=== PATIENT | female | born 1995 | race Caucasian/White ===

== ENCOUNTER → 2016-11-11 | Outpatient (REF) | payer BC | LOC: M LAB REF 15:03 | PROVIDERS: ATTEND Advanced Practice Midwife | DX: Z12.4 Encounter for screening for malignant neoplasm of cervix (principal) ==

== ENCOUNTER → 2016-12-02 | Outpatient (REF) | payer BC ==
[2016-12-02 12:19] LABS: BASO % 0.1 % (0.0-1.0); EOS % 0.1 % (0.0-3.0); LARGE UNSTAINED CELL # 0.1 K/mm3 (0.0-0.4); LARGE UNSTAINED CELL % 3.1 % (0.0-4.0); LYMPH # 1.2 K/mm3 (1.5-6.5); MEAN CORPUSCULAR HEMOGLOBIN 28.4 pg (27.0-33.0); MEAN CORPUSCULAR HGB CONC 33.2 g/dl (32.0-36.5); MEAN CORPUSCULAR VOLUME 85.6 fl (80.0-96.0); MONO # 0.2 K/mm3 (0.0-0.8); MONO % 6.3 % (0.0-5.0); NEUTROPHILS # 1.9 K/mm3 (1.8-7.7); NEUTROPHILS % 55.5 % (36.0-66.0); PLATELET COUNT, AUTOMATED 249 k/mm3 (150-450); RED CELL DISTRIBUTION WIDTH 12.5 % (11.5-14.5); WHITE BLOOD COUNT 3.4 K/mm3 (4.0-10.0)
[2016-12-02 12:50] LABS: ALBUMIN/GLOBULIN RATIO 1.29 (1.00-1.93); ALKALINE PHOSPHATASE 52 U/L (45-117); ALT/SGPT 27 U/L (12-78); ANION GAP 9 MEQ/L (8-16); AST/SGOT 16 U/L (15-37); BILIRUBIN,TOTAL 0.7 MG/DL (0.2-1.0); BLOOD UREA NITROGEN 7 MG/DL (7-18); CALCIUM LEVEL 8.3 MG/DL (8.5-10.1); CARBON DIOXIDE LEVEL 26 MEQ/L (21-32); CHLORIDE LEVEL 107 MEQ/L (98-107); CREATININE FOR GFR 0.66 MG/DL (0.55-1.02); FREE T4 0.91 NG/DL (0.76-1.46); GLOMERULAR FILTRATION RATE > 60.0 (>60); GLUCOSE, FASTING 83 MG/DL (70-105); POTASSIUM SERUM 3.9 MEQ/L (3.5-5.1); SODIUM LEVEL 142 MEQ/L (136-145); TOTAL PROTEIN 7.1 GM/DL (6.4-8.2)
== END ==
LOC: M LAB REF 10:08
PROVIDERS: ATTEND Family Medicine
DX: A04.7 Enterocolitis due to Clostridium difficile (principal)

== ENCOUNTER → 2017-12-01 | Outpatient (REF) | payer OTHER ==
[2017-12-01 17:18] LABS: HEMATOCRIT 43.5 % (36.0-47.0); HEMOGLOBIN 14.2 g/dl (12.0-16.0); IMMATURE GRANULOCYTE % 0.2 % (0-3.0); LYMPH # 1.4 10^3/uL (1.5-6.5); LYMPH % 25.6 % (24.0-44.0); MEAN CORPUSCULAR HEMOGLOBIN 27.6 pg (27.0-33.0); MEAN CORPUSCULAR HGB CONC 32.6 g/dl (32.0-36.5); MEAN CORPUSCULAR VOLUME 84.5 fl (80.0-96.0); MONO # 0.4 10^3/uL (0.0-0.8); MONO % 7.9 % (0.0-5.0); NEUTROPHILS # 3.6 10^3/uL (1.8-7.7); NEUTROPHILS % 66.3 % (36.0-66.0); PLATELET COUNT, AUTOMATED 293 10^3/uL (150-450); RED BLOOD COUNT 5.15 10^6/uL (4.00-5.40); RED CELL DISTRIBUTION WIDTH 13.3 % (11.5-14.5); WHITE BLOOD COUNT 5.4 10^3/uL (4.0-10.0)
[2017-12-01 17:59] LABS: THYROGLOBULIN ANTIBODY < 15.0 U/ML (<60.0); THYROID PEROXIDASE ANTIBODY < 28.0 U/ML (<60.0); TOTAL 25(OH) VITAMIN D 20.8 NG/ML (30.0-100.0)
[2017-12-01 18:03] LABS: ALBUMIN 4.4 GM/DL (3.2-5.2); ALBUMIN/GLOBULIN RATIO 1.26 (1.00-1.93); ALKALINE PHOSPHATASE 55 U/L (45-117); ALT/SGPT 23 U/L (12-78); AST/SGOT 17 U/L (7-37); BILIRUBIN,DIRECT 0.2 MG/DL (0.0-0.2); BILIRUBIN,TOTAL 0.6 MG/DL (0.2-1.0); RHEUMATOID FACTOR QUANT < 10.0 IU/ML (0-15.0); THYROXINE (T4) 7.6 UG/DL (4.5-12.0); TOTAL PROTEIN 7.9 GM/DL (6.4-8.2)
[2017-12-01 20:43] LABS: ERYTHROCYTE SEDIMENTATION RATE 3 mm/hr (0-20)
[2017-12-04 14:16] LABS: ANTINUCLEAR ANTIBODIES DIRECT Negative (Negative)
[2017-12-05 00:06] LABS: COMPLEMENT TOTAL (CH50) 60 U/mL (42-60)
== END ==
LOC: M LABDRAW1 15:22
DX: L50.1 Idiopathic urticaria (principal); E55.9 Vitamin D deficiency, unspecified; E07.89 Other specified disorders of thyroid; Z91.018 Allergy to other foods

== ENCOUNTER → 2018-02-05 | Outpatient (REF) | payer OTHER | LOC: M LAB REF 09:55 | DX: R19.7 Diarrhea, unspecified (principal) | CPT/HCPCS: 87507 ==

== ENCOUNTER 2018-11-21 14:26 | Emergency (ER) | payer OTHER ==
[~2018-11-21] VITALS: Ht 149.9 cm; Wt 59.0 kg
[2018-11-21] MEDS ORDERED: FLUO20CA19 (14:38)
[2018-11-21] MEDS ORDERED: ALTA1TAB3 (14:38)
[2018-11-21] MEDS ORDERED: HYDR2.5C54 (14:38)
[2018-11-21] MEDS ORDERED: ZYRTTAB8 PO (14:38)
[2018-11-21] MEDS ORDERED: OMEP-218 (14:38)
[2018-11-21] MEDS ORDERED: CLON0.5T8 (14:38)
[2018-11-21] MEDS ORDERED: NS 1,000 ML IV ONE (15:15)
[2018-11-21 15:59] LABS: BASO % 0.1 % (0.0-1.0); HEMATOCRIT 38.6 % (36.0-47.0); HEMOGLOBIN 12.5 g/dl (12.0-15.5); LYMPH # 1.4 10^3/uL (1.5-6.5); LYMPH % 12.8 % (24.0-44.0); MEAN CORPUSCULAR HEMOGLOBIN 28.2 pg (27.0-33.0); MEAN CORPUSCULAR HGB CONC 32.4 g/dl (32.0-36.5); MEAN CORPUSCULAR VOLUME 86.9 fl (80.0-96.0); MONO # 0.6 10^3/uL (0.0-0.8); MONO % 5.7 % (0.0-5.0); NEUTROPHILS # 8.7 10^3/uL (1.8-7.7); PLATELET COUNT, AUTOMATED 292 10^3/uL (150-450); RED BLOOD COUNT 4.44 10^6/uL (4.00-5.40); WHITE BLOOD COUNT 10.8 10^3/uL (4.0-10.0)
[2018-11-21 17:01] LABS: HCG, SERUM QUALITATIVE NEGATIVE (NEGATIVE)
[2018-11-21 17:09] LABS: ALT/SGPT 19 U/L (12-78); BILIRUBIN,TOTAL 0.4 MG/DL (0.2-1.0); BLOOD UREA NITROGEN 7 MG/DL (7-18); CALCIUM LEVEL 8.1 MG/DL (8.5-10.1); CARBON DIOXIDE LEVEL 29 MEQ/L (21-32); CHLORIDE LEVEL 106 MEQ/L (98-107); CREATININE FOR GFR 0.75 MG/DL (0.55-1.30); GLOMERULAR FILTRATION RATE > 60.0 (>60); GLUCOSE, FASTING 95 MG/DL (70-100); POTASSIUM SERUM 3.4 MEQ/L (3.5-5.1); SODIUM LEVEL 140 MEQ/L (136-145)
[2018-11-21 17:30] VITALS: BP 153/82
[2018-11-21] MEDS ORDERED: LAMI25TA PO (17:55)
--- NOTE | 2018-11-21 17:59 | REP ---
Head CT without contrast: History: Trauma Comparison study: No comparison head CT. CT findings: Bone window settings demonstrate an intact bony calvarium. There is no evidence of skull fracture or incidental bony calvarial lesion. The visualized paranasal sinuses appear clear. No intraorbital abnormality is seen. On soft tissue window setting images; the lateral, third, and fourth ventricles are normal in size and position. Michaels-white differentiation pattern is normal above and below the tentorium. There are is no evidence of intracranial hemorrhage. No mass, edema, infarction, or midline shift is seen. No extra-axial fluid collection is appreciated. Impression: Negative noncontrast head CT. Electronically Signed by Pablito Fall MD 11/21/2018 05:50 P
[2018-11-21] MEDS ORDERED: lamoTRIgine 25 MG TAB PO ONE (18:00)
--- NOTE | 2018-11-21 21:19 | ECGEPIP ---
Stationary ECG Study [facility] - ED Test Date: 2018-11-21 Pat Name: DEE RITCHIE Department: Room: - Gender: F Maitre D: : 1995 Requested By: Camila Crawford Order Number: [id number] Reading MD: Ricki Cloud Measurements Intervals [place] Rate: 105 P: 66 PA: 167 QRS: 52 QRSD: 82 T: 29 QT: 348 QTc: 462 Interpretive Statements SINUS TACHYCARDIA POSSIBLE LEFT ATRIAL ENLARGEMENT MINIMAL ST DEPRESSION NO PRIORS FOR COMPARISON Electronically Signed On 11-21-2018 21:19:17 EST by Ricki Cloud
== END 2018-11-21 18:12 | disposition home or self-care (01) ==
LOC: M ED 14:26 → EDBD 14:26 → M ED 18:12
DX: G43.909 Migraine, unspecified, not intractable, without status migrainosus (principal)

== ENCOUNTER → 2018-12-21 | Outpatient (REF) | payer OTHER ==
[~2018-12-21] MED LIST: ALTA1TAB3; CLON0.5T8; FLUO20CA19; HYDR2.5C54; LAMI25TA PO; OMEP-218; ZYRTTAB8 PO
[2018-12-21 13:23] LABS: BASO % 0.1 % (0.0-1.0); HEMATOCRIT 39.4 % (36.0-47.0); HEMOGLOBIN 12.6 g/dl (12.0-15.5); LYMPH # 1.2 10^3/uL (1.5-6.5); LYMPH % 15.1 % (24.0-44.0); MEAN CORPUSCULAR HEMOGLOBIN 27.6 pg (27.0-33.0); MEAN CORPUSCULAR VOLUME 86.4 fl (80.0-96.0); MONO # 0.3 10^3/uL (0.0-0.8); MONO % 4.3 % (0.0-5.0); NEUTROPHILS # 6.2 10^3/uL (1.8-7.7); NEUTROPHILS % 80.4 % (36.0-66.0); PLATELET COUNT, AUTOMATED 330 10^3/uL (150-450); RED BLOOD COUNT 4.56 10^6/uL (4.00-5.40); WHITE BLOOD COUNT 7.7 10^3/uL (4.0-10.0)
[2018-12-21 13:52] LABS: ERYTHROCYTE SEDIMENTATION RATE 10 mm/hr (0-20)
[2018-12-21 14:08] LABS: ALT/SGPT 21 U/L (12-78); BILIRUBIN,TOTAL 0.3 MG/DL (0.2-1.0); BLOOD UREA NITROGEN 10 MG/DL (7-18); CALCIUM LEVEL 8.5 MG/DL (8.5-10.1); CARBON DIOXIDE LEVEL 25 MEQ/L (21-32); CHLORIDE LEVEL 105 MEQ/L (98-107); GLOMERULAR FILTRATION RATE > 60.0 (>60); GLUCOSE, FASTING 84 MG/DL (70-100); POTASSIUM SERUM 4.3 MEQ/L (3.5-5.1); RHEUMATOID FACTOR QUANT < 10.0 IU/ML (<15.0); SODIUM LEVEL 139 MEQ/L (136-145); TOTAL PROTEIN 7.4 GM/DL (6.4-8.2)
[2018-12-24 15:42] LABS: ANTINUCLEAR ANTIBODIES DIRECT Negative (Negative)
== END ==
LOC: M LABDRAW1 12:28
PROVIDERS: ATTEND Psychiatry & Neurology Neurology
DX: R56.9 Unspecified convulsions (principal)

== ENCOUNTER → 2019-05-06 | Outpatient (CLI) | payer OTHER ==
--- NOTE | 2019-05-07 03:08 | REP ---
Clinical: Constipation. Technique: Supine views of the abdomen and pelvis. Findings: Three total views demonstrate nonspecific bowel gas pattern without evidence for obstruction or perforation. No significant fecal stasis or constipation suggested. No organomegaly. No abnormal calcifications. Skeletal structures are intact. Impression: Normal, nonspecific abdominal radiographs. Electronically Signed by Barrie Dominguez MD 05/07/2019 02:59 A
== END ==
LOC: M WUC 16:51
PROVIDERS: ATTEND Family Medicine
DX: K59.00 Constipation, unspecified (principal)

== ENCOUNTER → 2019-08-16 | Outpatient (REF) | payer OTHER ==
[2019-08-16 15:03] LABS: CHLAMYDIA DNA AMPLIFICATION NEGATIVE (NEGATIVE); GC DNA AMPLIFICATION NEGATIVE (NEGATIVE)
== END ==
LOC: M LAB REF 13:07
PROVIDERS: ATTEND Advanced Practice Midwife
DX: Z11.3 Encounter for screening for infections with a predominantly sexual mode of transmission (principal)

== ENCOUNTER → 2019-12-27 | Outpatient (REF) | payer BC ==
[~2019-12-27] MED LIST changes: +CLON0.5T2; -CLON0.5T8; -FLUO20CA19; +FLUO20CA22
[2019-12-27 12:09] LABS: HEMATOCRIT 40.8 % (36.0-47.0); HEMOGLOBIN 12.8 g/dl (12.0-15.5); MEAN CORPUSCULAR HEMOGLOBIN 26.4 pg (27.0-33.0); MEAN CORPUSCULAR HGB CONC 31.4 g/dl (32.0-36.5); MEAN CORPUSCULAR VOLUME 84.1 fl (80.0-96.0); PLATELET COUNT, AUTOMATED 320 10^3/uL (150-450); RED BLOOD COUNT 4.85 10^6/uL (4.00-5.40); WHITE BLOOD COUNT 6.6 10^3/uL (4.0-10.0)
[2019-12-27 12:56] LABS: HEPATITIS B SURFACE ANTIGEN NEGATIVE (NEGATIVE); HEPATITIS C VIRUS ABY INDEX < 0.0 INDEX (<0.8); HIV 1&2 SCREEN CENTAUR NEGATIVE (NEGATIVE); RUBELLA IgG QUALITATIVE IMMUNE (IMMUNE)
[2019-12-28 11:37] LABS: CHLAMYDIA DNA AMPLIFICATION NEGATIVE (NEGATIVE); GC DNA AMPLIFICATION NEGATIVE (NEGATIVE)
== END ==
LOC: M LABDRAW1 09:45
PROVIDERS: ATTEND Advanced Practice Midwife
DX: O99.351 Diseases of the nervous system complicating pregnancy, first trimester (principal)

== ENCOUNTER → 2020-02-21 | Outpatient (CLI) | payer BC ==
--- NOTE | 2020-02-21 10:37 | REP ---
REASON: anatomy. PRIORS: None. Multiple ultrasonographic images of the gravid uterus show a single living intrauterine gestation in the cephalic presentation. Doppler interrogation of the heart shows a heart rate of 140 beats per minute. The placenta is anterior and not low lying. The cervix measures 3. 5 cm in length and is closed. The subjective amniotic fluid volume is within normal limits. Evaluation of the maternal adnexal spaces showed no abnormalities. BPD 4.0 cm = 18 weeks 2 days HC 15.0 cm = 18 weeks 0 days AC 12.0 cm = 17 weeks 6 days FL 2.8 cm = 18 weeks 4 days The estimated weight is 229 grams which is at the 43rd percentile for an 45-qnvs-0-day gestational age. anatomical structures visualized as unremarkable are as follows: Thalami, cavum septum pellucidum, cerebellum, cisterna magna, spine, cord insertion, three vessel umbilical cord, and upper and lower extremities. Structures suboptimally visualized are as follows: Kidneys, urinary bladder, four-chamber heart, right and left ventricular outflow tracts, and upper lip. IMPRESSION: Single living intrauterine gestation as described above with an estimated gestational age of 18 weeks 1 day via composite criteria and an estimated date of delivery of by today's exam. No anomaly was detected, however, I recommend a followup examination at 20-22 weeks gestation to better visualize those structures not well seen today as described above.
== END ==
LOC: M WHC 07:49
PROVIDERS: ATTEND Advanced Practice Midwife
DX: Z34.02 Encounter for supervision of normal first pregnancy, second trimester (principal); Z3A.18 18 weeks gestation of pregnancy

== ENCOUNTER → 2020-03-27 | Outpatient (CLI) | payer BC ==
--- NOTE | 2020-03-30 07:45 | REP ---
Clinical: Anatomical evaluation. Comparison: 02/21/2020 . Findings: Examination demonstrates a single live intrauterine in cephalic presentation. motion is identified by technologist. Placenta is noted anterior and grade I I without evidence for placenta previa or abruption. Amniotic fluid volume is normal. Cervix measures 4.2 cm in length and appears closed. No evidence for nuchal cord. Maternal left adnexa demonstrates echogenicity which may represent normal bowel gas, but left adnexal mass cannot be excluded and may warrant maternal pelvic ultrasound evaluation. Gestational age by LMP 23 weeks 2 days with REFUGIO 07/22/2020 . Gestational age by current measurements 22 weeks 6 days with REFUGIO 07/25/2020 . FHR equals 142 beats per minute. Estimated weight 598 grams ( 50th percentile). Anatomical assessment demonstrates normal structures including facial features, and four-chamber heart/ventricular outflow tracts. Impression: 1. Single live intrauterine in cephalic presentation demonstrating appropriate interval growth. 2. In conjunction with prior examination anatomical assessment is complete and normal. 3. Cannot exclude echogenic mass in the left maternal adnexa. Pelvic ultrasound sometime after delivery may be warranted for further investigation.
== END ==
LOC: M WHC 08:52
PROVIDERS: ATTEND Advanced Practice Midwife
DX: Z34.02 Encounter for supervision of normal first pregnancy, second trimester (principal); Z36.2 Encounter for other antenatal screening follow-up; Z3A.23 23 weeks gestation of pregnancy

== ENCOUNTER → 2020-05-01 | Outpatient (REF) | payer BC ==
[~2020-05-01] MED LIST changes: +IBUP80TA PO
[2020-05-01 13:57] LABS: HEMOGLOBIN 10.9 g/dl (12.0-15.5); MEAN CORPUSCULAR HEMOGLOBIN 26.9 pg (27.0-33.0); MEAN CORPUSCULAR HGB CONC 31.1 g/dl (32.0-36.5); MEAN CORPUSCULAR VOLUME 86.4 fl (80.0-96.0); PLATELET COUNT, AUTOMATED 265 10^3/uL (150-450); RED BLOOD COUNT 4.05 10^6/uL (4.00-5.40); WHITE BLOOD COUNT 9.5 10^3/uL (4.0-10.0)
== END ==
LOC: M PLALAB 10:39
PROVIDERS: ATTEND Advanced Practice Midwife
DX: O99.352 Diseases of the nervous system complicating pregnancy, second trimester (principal)
CPT/HCPCS: 36415; 82950; 85027; 86850; 86900; 86901; J2790

== ENCOUNTER → 2020-06-26 | Outpatient (REF) | payer BC | LOC: M SFHCWAGY 11:46 | PROVIDERS: ATTEND Advanced Practice Midwife | DX: Z34.03 Encounter for supervision of normal first pregnancy, third trimester (principal); Z3A.00 Weeks of gestation of pregnancy not specified ==

== ENCOUNTER → 2020-06-26 | Outpatient (REF) | payer BC | LOC: M LAB REF 16:17 | PROVIDERS: ATTEND Plastic Surgery Surgery of the Hand | DX: D21.11 Benign neoplasm of connective and other soft tissue of right upper limb, including shoulder (principal) ==

== ENCOUNTER 2020-07-09 11:40 | Inpatient (IN) | payer BC ==
[2020-07-09] VITALS (43 sets, daily range): BP systolic 111–158; BP diastolic 56–93
[~2020-07-09] VITALS: Ht 149.9 cm; Wt 81.8 kg
[~2020-07-09 11:40] MED LIST changes: -IBUP80TA PO
--- NOTE | 2020-07-09 13:18 | HPEPDOC ---
Obstetrical History & Physical General Date of Admission Jul 09, 2020 at 12:58 History of Present Illness Chief Complaint: LOF, term Information Provided By: Patient Age: 25 : 1 Term: 0 Pre-term: 0 Abortions: 0 Livin Care Care: Good Care Dating Final EDC: Jul 20, 2020 Final EDC by: LMP, 1st trimester (US) EGA at Admission: 38 Antepartum Course Diagnos(e)s c/o loss of fluid per vagina at 8:30 am on the day of admission. leaking continued. Mild contractions. no vaginal bleeding. Past Medical History Past Obstetrical History : Past Obstetrical History: Primgravida Past Medical History Medical History Seizure disorder anxiety Surgical History: Denies/None Family History Significant Family History: No pertinent family hx Social History Marital Status: Single * Smoker: non-smoker Alcohol: Denies Drugs: denies Allergies Coded Allergies: clindamycin (Verified Allergy, Intermediate, HIVES, 07/09/20) Medications Scheduled Cetirizine HCl/Pseudoephedrine (Zyrtec-D Tablet) 1 Tab Tab, 1 TAB PO DAILYPRN Miscellaneous Medications Omeprazole (Omeprazole) 20 Mg Cap Physical Examination Physical Examination GENERAL: Alert and oriented times three. BREAST: . ABDOMEN: Gravid and non-tender to touch. FETUS: Is vertex (VTX) by sterile vaginal examination (SVE), fetus is vertex (VTX) by Gomez. HEART RATE: Regular rate and rhythm. LUNGS: Clear to auscultation (CTA). EXTREMITIES: No edema. No clonus. Deep tendon reflexes (DTRs) + . Vital Signs/I&O Vital Signs Date Time Temp Pulse Resp B/P (MAP) Pulse Ox O2 Delivery O2 Flow Rate FiO2 07/09/20 12:19 146/91 (109) 07/09/20 12:17 98.6 100 18 Pertinent Laboratoy Data Blood Type: A- Group B Streptococcus: Negative Vaginal Examination Dilation: 1cm Effacement: 80% Station: -2 Cervical Consistency: Soft Cervical Position: Middle Position: Vertex (occiput) Assessment Variability: Moderate Accelerations: Positive Decelerations: None Tocometer Contractions: Yes Frequency: irregular, every 3-7 min. Strength: palpated as mild Assessment/Plan Assessment Lisset Pelayo is a 25 -year-old 1 para 0 at 38+3 weeks by 8-week ultrasound. Presents to Labor and Delivery with spontaneous rupture of membranes Plan Admit and orient. Sales & Service Associate and consen Group B Streptococcus (GBS) [negative]. Labs and intravenous (IV) per unit protocol. Counseled on Pitocin and induction of labor (IOL). Anticipate [normal spontaneous delivery ()]. C-S as appropriate. LELO CHANG MD Jul 09, 2020 13:18
[2020-07-09] MEDS ORDERED: OXYTOCIN DRIP 30 UNITS in IV 1 EA IV SCH (13:30)
[2020-07-09] MEDS: LR 1,000 ML IV SCH ×3 (14:17→22:50)
[2020-07-09 15:14] LABS: ALT/SGPT 25 U/L (12-78); BILIRUBIN,TOTAL 0.4 MG/DL (0.2-1.0); CREATININE FOR GFR 0.56 MG/DL (0.55-1.30); GLOMERULAR FILTRATION RATE > 60.0 (>60); LDH LACTATE DEHYDROGENASE 303 U/L (84-246); URIC ACID 5.1 MG/DL (2.6-6.0)
[2020-07-09 15:22] LABS: HEMATOCRIT 33.9 % (36.0-47.0); HEMOGLOBIN 10.3 g/dl (12.0-15.5); MEAN CORPUSCULAR HEMOGLOBIN 25.2 pg (27.0-33.0); MEAN CORPUSCULAR HGB CONC 30.4 g/dl (32.0-36.5); MEAN CORPUSCULAR VOLUME 83.1 fl (80.0-96.0); PLATELET COUNT, AUTOMATED 206 10^3/uL (150-450); RED BLOOD COUNT 4.08 10^6/uL (4.00-5.40); WHITE BLOOD COUNT 8.4 10^3/uL (4.0-10.0)
[2020-07-09] MEDS ORDERED: FENTANYL 2MCG/ML ROPIVACAINE 0.2% IN 0.9% NACL 100ML IVBAG As Ordered ONE (18:06)
[2020-07-09] MEDS ORDERED: diphenhydrAMINE 50MG/ML VIAL (J1200) IV PRN (22:00)
[2020-07-09] MEDS ORDERED: ONDANSETRON 4MG/2ML VIAL IV PRN (22:00)
[2020-07-09] MEDS ORDERED: EPIDURAL/PCA KEYS XX PRN (22:00)
[2020-07-09] MEDS ORDERED: FENTANYL/ROPIVACAINE/NACL BAG 100 ML EPIDURAL SCH (22:00)
[2020-07-09] MEDS ORDERED: NALOXONE INJ 0.4MG/1ML VIAL (J2310 PER 1MG) IV PRN (22:00)
[2020-07-09] MEDS ORDERED: ePHEDrine SULFATE 25 MG/5 ML(5MG/ML) SYRINGE IV PRN (22:00)
[2020-07-09] MEDS ORDERED: LACTATED RINGER'S 1000 ML IV PRN (22:00)
[2020-07-09] MEDS ORDERED: REFRIGERATOR IV KEYS XX PRN (22:00)
[2020-07-09] MEDS ORDERED: EPIDURAL COMMENT XX SCH (22:00)
[2020-07-10] VITALS (19 sets, daily range): BP systolic 126–195; BP diastolic 60–94
[2020-07-10 03:19] LABS: CORD GAS ABE V -7.8; CORD GAS PCO2 V 37.9 mmHg; CORD GAS PH V 7.294 UNITS; CORD GAS SBC V 17.1 MEQ/L; CORD GAS TCO2 V 19.1 MEQ/L
--- NOTE | 2020-07-10 03:42 | DNPDOC ---
[facility] Delivery Note Delivery Note DATE OF DELIVERY: 07/10/2020 PREDELIVERY DIAGNOSIS: 38-1/7 weeks' gestation and labor. POST DELIVERY DIAGNOSIS: Delivered. PROCEDURE: Low forceps assisted vaginal delivery. ETHNOLOGY TEACHER: Dr. Lelo Chang MD ANESTHESIA: epidural. ESTIMATED BLOOD LOSS: 300 mL. FINDINGS: 6 pound 7 ounce female infant, Score 7/8, nuchal cord times 1. DELIVERY SUMMARY: Patient is a 25-year-old 1 now para 1-0-0-1 who was admitted to labor and delivery for SROM in early labor. She progressed to become fully dilated with Pitocin Augmentation. After a two hour second stage of labor she was diagnosed with arrest of descent. Da-Luikhardt Forceps applied to LYN vertex at +2 station. Delivery accomplished with one controlled traction along with maternal effort. Nuchal cord x 1 reduced. The shoulders delivered with ease. handed to mother. The cord was clamped and cut. The placenta delivered spontaneously and appeared intact. A second degree laceration was repaired under local anesthesia with 2-0 Chromic suture in the usual fashion. Sponge and needle counts were correct. LELO HCANG MD Jul 10, 2020 03:42
[2020-07-10] MEDS ORDERED: MEASLES,MUMPS,RUBELLA VACCINE INJ (MMR-II) (90707) SC SCH (03:45)
[2020-07-10] MEDS ORDERED: ONDANSETRON 4MG/2ML VIAL IV PRN (03:45)
[2020-07-10] MEDS ORDERED: RHOGAM 300 MCG (1500 IU) INJ (J2790) IM SCH (03:45)
[2020-07-10] MEDS ORDERED: ACETAMINOPHEN 500 MG TAB PO PRN (03:45)
[2020-07-10] MEDS ORDERED: DOCUSATE SODIUM 100MG CAPSULE PO PRN (03:45)
[2020-07-10] MEDS ORDERED: OXYTOCIN DRIP 30 UNITS in IV 1 EA IV ONE (03:45)
[2020-07-10] MEDS ORDERED: METHYLERGONOVINE MALEATE 0.2 MG TAB PO PRN (03:45)
[2020-07-10] MEDS ORDERED: DIBUCAINE 1% OINTMENT 30GM TOP PRN (03:45)
[2020-07-10] MEDS ORDERED: IBUPROFEN 600MG TAB PO PRN (03:45)
[2020-07-10] MEDS ORDERED: LIDOCAINE 1% MDV 20ML VIAL INFIL ONE (03:45)
[2020-07-10] MEDS ORDERED: ACETAMINOPHEN TAB 650MG DOSE (2X325MG) PO PRN (03:45)
[2020-07-10] MEDS: PRENATAL VITAMINS CHEWABLE TABLET PO SCH (09:00)
[2020-07-11 06:00] VITALS: BP 133/79
--- NOTE | 2020-07-11 07:14 | IPNPDOC ---
Text Note Date of Service The patient was seen on 07/11/20. NOTE States low back pain after multiple epidural attempts. No further complaints. VSS, afebrile, normotensive. well throughout the night. Breasts soft non-tender, nipples intact, left nipple reddened. Fundus firm, midline, at umbilicus. Lochia rubra, small amount, no odor, denies clots. Encouraged her to consult with nurses to ensure a good latch and lanolin use. Encouraged position changes, warmth, and Tylenol and Motrin PRN for pain. Plan to discharge tomorrow AM. VS,Fishbone, I+O VS, Fishbone, I+O Vital Signs Date Time Temp Pulse Resp B/P (MAP) Pulse Ox O2 Delivery O2 Flow Rate FiO2 07/11/20 06:00 97.7 103 18 133/79 (97) Ele Sifuentes CNM Jul 11, 2020 07:14
[2020-07-11] MEDS: PRENATAL VITAMINS CHEWABLE TABLET PO SCH (08:22)
[2020-07-11] MEDS: IBUPROFEN 800 MG TAB PO PRN ×2 (08:24→20:35)
[2020-07-11 18:00] VITALS: BP 139/87
[2020-07-12 06:00] VITALS: BP 143/101
[2020-07-12] MEDS: PRENATAL VITAMINS CHEWABLE TABLET PO SCH (07:52)
[2020-07-12] MEDS: IBUPROFEN 800 MG TAB PO PRN (07:52)
[2020-07-12 08:30] VITALS: BP 136/90
--- NOTE | 2020-07-12 09:06 | IPNPDOC ---
Progress Note Date of Service: Jul 12, 2020 Day#: 2 Progress Note PPD 2 SUBJECT: Lisset is a 25yo [id number] who had uncomplicated after presenting with SROM/labor, doing well day # 2. She has been ambulating, voiding spontaneously without issue and tolerating regular diet. Breast and bottle feeding without issue. Reports lochia is like a normal period. Denies f/c/n/v/CP/SOB. She had nasal congestion before she presented, and continues to have yellow nasal discharge with no other sx. OBJECTIVE: VITAL SIGNS: Within normal limits, afebrile. Alert and oriented times three. Abdomen: Fundus firm at U-2. Soft, NTTP. Extremities: no pain with palpation of calves Labs: Covid testing negative, but respiratory cx was positive for rhinovirus ASSESSMENT: Lisset is a 25yo [id number] who had uncomplicated after presenting with SROM/labor, doing well day # 2. Vitals within normal limits, afebrile, hemodynamically stable with no evidence of infection. PLAN: 1. Discharge to home today. 2. Tylenol and Motrin for pain. 3. Encourage breast feeding and ambulation. 4. Undecided on contraception 5. Routine PP visit in 6 weeks in clinic. 6. Discussed return precautions at length. 7. Symptomatic treatment of cold Preeti Beltran MD VS, I&O, 24H, Fishbone Vital Signs/I&O Vital Signs Date Time Temp Pulse Resp B/P (MAP) Pulse Ox O2 Delivery O2 Flow Rate FiO2 07/12/20 08:30 83 136/90 (105) 07/12/20 06:00 96.9 16 07/11/20 18:00 99 Room Air Laboratory Data Microbiology Microbiology 07/12/20 Respiratory Virus Panel (PCR) ([facility]) - Final, Complete Human Rhinovirus/Enterovirus Preeti Beltran MD Jul 12, 2020 09:06
[2020-07-12] MEDS ORDERED: IBUP80TA PO (09:09)
--- NOTE | 2020-07-12 09:13 | DS.PDOC ---
Discharge Summary General Date of Admission Jul 09, 2020 at 12:58 Date of Discharge Jul 12, 2020 Discharge Summary PROCEDURES PERFORMED DURING STAY: spontaneous vaginal delivery ADMITTING DIAGNOSES: 1. SROM/labor at term DISCHARGE DIAGNOSES: 1. SROM/labor at term, delivered COMPLICATIONS/CHIEF COMPLAINT: LABOR. HISTORY OF PRESENT ILLNESS/HOSPITAL COURSE: Lisset is a 25yo [id number] who had uncomplicated after presenting with SROM/labor, doing well day # 2. At time of discharge, vitals were within normal limits, afebrile, hemodynamically stable with no evidence of infection. DISCHARGE MEDICATIONS: Please see below. ALLERGIES: Please see below. PHYSICAL EXAMINATION ON DISCHARGE: VITAL SIGNS: Within normal limits, afebrile. Alert and oriented times three. Abdomen: Fundus firm at U-2. Soft, NTTP. Extremities: no pain with palpation of calves LABORATORY DATA: Please see below. Covid testing negative, but respiratory cx was positive for rhinovirus ACTIVITY: As tolerated, vaginal rest and no heavy lifting 6 weeks DIET: regular DISPOSITION: home DISCHARGE PLAN/INSTRUCTIONS: 1. Discharge to home today. 2. Tylenol and Motrin for pain. 3. Encourage breast feeding and ambulation. 4. Undecided on contraception 5. Routine PP visit in 6 weeks in clinic. 6. Discussed return precautions at length. 7. Symptomatic treatment of cold DISCHARGE CONDITION: Stable TIME SPENT ON DISCHARGE: Greater than 20 minutes. Preeti Beltran MD Vital Signs/I&Os Vital Signs Date Time Temp Pulse Resp B/P (MAP) Pulse Ox O2 Delivery O2 Flow Rate FiO2 07/12/20 08:30 83 136/90 (105) 07/12/20 06:00 96.9 16 07/11/20 18:00 99 Room Air Microbiology Microbiology 07/12/20 Respiratory Virus Panel (PCR) ([facility]PHENIE) - Final, Complete Human Rhinovirus/Enterovirus Discharge Medications Scheduled Cetirizine HCl/Pseudoephedrine (Zyrtec-D Tablet) 1 Tab Tab, 1 TAB PO DAILYPRN, (Reported) Scheduled PRN Ibuprofen (Ibuprofen) 800 Mg Tablet, 800 MG PO Q8HP PRN for PAIN LEVEL 6-10 Miscellaneous Medications Omeprazole (Omeprazole) 20 Mg Cap, (Reported) Allergies Coded Allergies: clindamycin (Verified Allergy, Intermediate, HIVES, 07/09/20) Preeti Beltran MD Jul 12, 2020 09:13
== END 2020-07-12 18:05 | disposition home or self-care (01) | DRG 560 ==
LOC: M LDO 11:40 → M LDI 12:58 → M OBS 07-10 08:25
PROVIDERS: ADMIT Specialist; ATTEND Specialist
PROC: 10D07Z3 Extraction of Products of Conception, Low Forceps, Via Natural or Artificial Opening (ICD-10-PCS; principal; 2020-07-10)
PROC: 0KQM0ZZ Repair Perineum Muscle, Open Approach (ICD-10-PCS; 2020-07-10)
DX: O69.81X0 Labor and delivery complicated by cord around neck, without compression, not applicable or unspecified (principal); O64.0XX0 Obstructed labor due to incomplete rotation of fetal head, not applicable or unspecified; Z3A.38 38 weeks gestation of pregnancy; O70.1 Second degree perineal laceration during delivery; Z37.0 Single live birth

== ENCOUNTER → 2020-09-21 | Outpatient (CLI) | payer BC ==
[~2020-09-21] MED LIST changes: +IBUP80TA PO
--- NOTE | 2020-09-21 16:51 | REP ---
INDICATION: LEFT OVARIAN CYST. COMPARISON: 03/27/2020 Ob ultrasound. TECHNIQUE: Transabdominal scanning performed. FINDINGS: Uterine dimensions are 8.3 x 2.7 x 4.6 cm. Endometrial echo is 5 mm in AP dimension and centrally placed. The bladder measures 13.4 x 9.4 x 6.0 cm.. The right ovary has dimensions of 2.6 x 1.8 x 2.2 cm. It's Doppler flow is normal with a resistive index of 0.47. The left ovary dimensions are 3.7 x 1.9 x 2.0 cm. It's Doppler flow was normal with resistive index of 0.47. There is no adnexal mass identified. Normal sized follicles are seen in each ovary. No free fluid is seen in the cul-de-sac. IMPRESSION: Negative pelvic ultrasound. <Electronically signed by Armand Michaels > 09/21/20 [id number]
== END ==
LOC: M WHC 14:48
PROVIDERS: ATTEND Specialist
DX: N83.202 Unspecified ovarian cyst, left side (principal)

== ENCOUNTER → 2021-11-12 | Outpatient (REF) | payer BC ==
[~2021-11-12] MED LIST changes: +OMEP-173; -OMEP-218
== END ==
LOC: M SFHCWAGY 15:16
PROVIDERS: ATTEND Advanced Practice Midwife
DX: Z12.4 Encounter for screening for malignant neoplasm of cervix (principal)

== ENCOUNTER → 2023-04-14 | Outpatient (REF) | payer BC | LOC: M SFHCWAGY 17:16 | PROVIDERS: ATTEND Nurse Practitioner Family | DX: Z12.4 Encounter for screening for malignant neoplasm of cervix (principal); R87.615 Unsatisfactory cytologic smear of cervix; R87.618 Other abnormal cytological findings on specimens from cervix uteri | CPT/HCPCS: 87624; G0123 ==

== ENCOUNTER → 2023-07-20 | Outpatient (CLI) | payer BC ==
[2023-07-20 11:21] LABS: HEMATOCRIT 41.8 % (36.0-47.0); HEMOGLOBIN 13.5 g/dl (12.0-15.5); LYMPH # 1.3 10^3/uL (1.5-5.0); LYMPH % 30.6 % (24.0-44.0); MEAN CORPUSCULAR HEMOGLOBIN 26.9 pg (27.0-33.0); MEAN CORPUSCULAR HGB CONC 32.3 g/dl (32.0-36.5); MEAN CORPUSCULAR VOLUME 83.3 fl (80.0-96.0); MONO # 0.4 10^3/uL (0.0-0.8); MONO % 8.2 % (2.0-8.0); NEUTROPHILS # 2.7 10^3/uL (1.5-8.5); NEUTROPHILS % 61.2 % (36.0-66.0); PLATELET COUNT, AUTOMATED 274 10^3/uL (150-450); RED BLOOD COUNT 5.02 10^6/uL (4.00-5.40); WHITE BLOOD COUNT 4.4 10^3/uL (4.0-10.0)
[2023-07-20 12:01] LABS: ALBUMIN 4.4 G/DL (3.2-5.2); ALKALINE PHOSPHATASE 48 U/L (46-116); ALT/SGPT 32 U/L (7.0-40); AST/SGOT 27 U/L (<34); BILIRUBIN,TOTAL 0.6 MG/DL (0.3-1.2); BLOOD UREA NITROGEN 10 MG/DL (9-23); CALCIUM LEVEL 9.1 MG/DL (8.5-10.1); CARBON DIOXIDE LEVEL 23 MMOL/L (20-31); CHLORIDE LEVEL 106 MMOL/L (98-107); CREATININE FOR GFR 0.62 MG/DL (0.55-1.30); GLOMERULAR FILTRATION RATE > 60.0 (>60); GLUCOSE, FASTING 74 MG/DL (60-100); POTASSIUM SERUM 4.2 MMOL/L (3.5-5.1); SODIUM LEVEL 141 MMOL/L (136-145); THYROID STIMULATING HORMONE 1.983 uIU/ML (0.55-4.78); TOTAL PROTEIN 7.1 G/DL (5.7-8.2)
[2023-07-20 12:02] LABS: FREE T4 1.16 NG/DL (0.89-1.76)
== END ==
LOC: M PLALAB 07:47
PROVIDERS: ATTEND Physician Assistant
DX: R00.2 Palpitations (principal)

== ENCOUNTER → 2024-01-12 | Outpatient (CLI) | payer BC ==
[2024-01-12 11:00] LABS: BASO % 0.1 % (0.0-1.0); HEMATOCRIT 34.8 % (36.0-47.0); HEMOGLOBIN 11.1 g/dl (12.0-15.5); LYMPH # 1.6 10^3/uL (1.5-5.0); LYMPH % 22.7 % (24.0-44.0); MEAN CORPUSCULAR HEMOGLOBIN 28.6 pg (27.0-33.0); MEAN CORPUSCULAR HGB CONC 31.9 g/dl (32.0-36.5); MEAN CORPUSCULAR VOLUME 89.7 fl (80.0-96.0); MONO # 0.4 10^3/uL (0.0-0.8); MONO % 5.4 % (2.0-8.0); NEUTROPHILS # 5.1 10^3/uL (1.5-8.5); NEUTROPHILS % 71.2 % (36.0-66.0); PLATELET COUNT, AUTOMATED 244 10^3/uL (150-450); RED BLOOD COUNT 3.88 10^6/uL (4.00-5.40); WHITE BLOOD COUNT 7.1 10^3/uL (4.0-10.0)
== END ==
LOC: M PLALAB 07:32
PROVIDERS: ATTEND Student in an Organized Health Care Education/Training Program
DX: Z34.83 Encounter for supervision of other normal pregnancy, third trimester (principal)

== ENCOUNTER → 2024-04-20 | Outpatient (REF) | payer BC ==
[~2024-04-20] MED LIST changes: +FLUO-365; -FLUO20CA22
== END ==
LOC: M LAB REF 17:17
PROVIDERS: ATTEND Physician Assistant Medical
DX: L03.115 Cellulitis of right lower limb (principal)

== ENCOUNTER → 2025-02-21 | Outpatient (CLI) | payer BC ==
[2025-02-25 13:32] LABS: HERPES ZOSTER, VARICELLA IgG 7.88 S/CO (>=1.00)
[2025-02-25 17:23] LABS: HERPES ZOSTER, VARICELLA IgM <= 0.90 (<=0.90)
[2025-02-26 22:42] LABS: HSV SOURCE Serum; HSV-1 DNA Not Detected (Not Detected); HSV-2 DNA Not Detected (Not Detected)
== END ==
LOC: M PLALAB 10:40
PROVIDERS: ATTEND Nurse Practitioner Family
DX: R21 Rash and other nonspecific skin eruption (principal)

== ENCOUNTER → 2025-05-05 | Outpatient (REF) | payer BC ==
[2025-05-05 17:32] LABS: APPEARANCE, URINE HAZY (CLEAR); BACTERIA, URINE AUTO 1+ (NEGATIVE); BILIRUBIN, URINE AUTO NEGATIVE (NEGATIVE); BLOOD, URINE BLOOD 3+ (NEGATIVE); GLUCOSE, URINE (UA) AUTO NEGATIVE (NEGATIVE); KETONE, URINE AUTO NEGATIVE (NEGATIVE); LEUKOCYTE ESTERASE, URINE AUTO 1+ (NEGATIVE); MUCUS, URINE SMALL (NEGATIVE); NITRITE, URINE AUTO NEGATIVE (NEGATIVE); PROTEIN, URINE AUTO 2+ mg/dL (NEGATIVE); RBC, URINE AUTO 3 /HPF (0-3); SPECIFIC GRAVITY URINE AUTO 1.012 (1.002-1.035); SQUAMOUS EPITHELIAL CELL UR AU 1 /HPF (0-6); UROBILINOGEN, URINE AUTO 0.2 mg/dL (0.0-2.0); WBC, URINE AUTO 5 /HPF (0-3)
== END ==
LOC: M LAB REF 16:49
PROVIDERS: ATTEND Physician Assistant Medical
DX: N39.0 Urinary tract infection, site not specified (principal)